=== PATIENT | male | born 1975 | race Caucasian/White ===

== ENCOUNTER 2024-04-08 14:29 | Outpatient (CLI) | payer OTHER | END 2024-04-08 14:30 | disposition home or self-care (01) | LOC: SCSMRI 14:29 | PROVIDERS: ATTEND Orthopaedic Surgery | DX: M23.92 Unspecified internal derangement of left knee (principal); M71.22 Synovial cyst of popliteal space [Baker], left knee; M25.462 Effusion, left knee; S83.242A Other tear of medial meniscus, current injury, left knee, initial encounter; I51.7 Cardiomegaly | CPT/HCPCS: 70250 ==